=== PATIENT | female | born 2000 | race Caucasian/White ===

== ENCOUNTER → 2023-05-13 09:36 | Outpatient (BNVA) | payer BC, OTHER, SELFPAY | PROVIDERS: PCP Nurse Practitioner Family; Visit Provider Physician Assistant Surgical ==

== ENCOUNTER 2023-06-06 08:37 | Outpatient (AMB) | payer BC, OTHER, SELFPAY ==
--- NOTE | 2023-06-06 08:40 | A.OFFVIS_ITS ---
Intake VS Expanded 06/06/23 08:49 Height 5 ft 7 in Weight 238 lb 6.4 oz BMI 37.3 BP 135/63 Blood Pressure Location Rt brachial Blood Pressure Position Sitting Pulse 78 Pulse Source Pulse Oximeter Temp 97.8 F Temperature Source Temporal Artery Scan Pulse Oximetry 98 Oxygen Delivery Method Room Air Body Fat 103.6 Body Fat Percentage 43.5 Free Fat Mass 134.8 Muscle Mass 127.8 Visceral Mass 9.0 Water Mass 97.0 BMR 1,929 Intake Visit Reasons: (OV) Gastric Balloon Allergies Sulfa (Sulfonamide Antibiotics) Allergy (Severe, Verified 06/06/23 08:46) Anaphylaxis HPI HPI Comments History of Present Illness Details She wants to lose weight but she want s to avoid to have bariatric surgery PFSH Surgical History (Updated 06/06/23 @ 08:47 by Ami Kaufman CMA) History of back surgery Family History (Updated 05/13/23 @ 09:51 by Ami Kaufman CMA) Mother No problems noted. Father Acute Crohn's disease Social History (Updated 05/13/23 @ 09:50 by Ami Kaufman CMA) Alcohol intake: never Patient Tobacco Use Status: Never used Tobacco Physical Exam Vital Signs: Last Vital Signs Temp 97.8 F 06/06/23 08:49 Pulse 78 06/06/23 08:49 BP 135/63 06/06/23 08:49 Pulse Ox 98 06/06/23 08:49 Oxygen Delivery Method Room Air 06/06/23 08:49 BMI result Body Mass Index 37.3 GI Inspection: Yes normal to inspection (mixed body habitus), Yes incision (lower midline) and Yes obesity Palpation (GI): Soft to palpation Extrem Right lower extremity: normal to inspection Left lower extremity: normal to inspection Assessment & Plan Assessment & Plan (1) Obesity: Code(s): E66.9 - Obesity, unspecified Plan: 1.? Plan for endogastric balloon therapy. We discussed the process in detailed including the need for endoscopy to place the balloon as well as to remove 6 months later under sedation or general anesthesia. We discussed the need to be on a PPI and a multivitamin throughout the balloon therapy. We discussed the potential risks and complications of the balloon including premature removal, premature balloon with potential balloon migration and bowel obstructions, gastric ulcer, GI bleeding, gastric or esophageal perforation, pancreatitis. Specifically for the premature balloon deflation we discussed the instillation of methylene blue into the balloon so in case of premature deflation the patient's urine would be discolored. We also discussed the potential symptoms the patient may experience the first few days until the stomach is fully adjusted to the balloon, including nausea, vomiting, abdominal cramping, GERD, dehydration that may require IV hydration, fatigue, lack of energy, excessive fullness, or burping. I reassured her that these symptoms are temporary and subside completely within the first week. We also discussed that the expected weight loss is about 25% of her initial weight which corresponds to about 58lbs. We also discussed the possibility of inadequate weight loss. I emphasized the importance of purchasing a body composition scale and the need for weekly weight measurements and communication with me. We also discussed the need for a proper nutritional plan that will include a combination of protein shakes, protein bars and a proper food-based meal. The patient will need to be on a liquid diet during the first week until the stomach is fully adjusted to the balloon as well as the last week before endoscopic removal so the stomach empties from any residual food. We also discussed the philosophy of the program that we use the balloon as a motivating factor to work with me and change slowly her lifestyle by improving her nutritional and exercise plan. This approach will maximize the weight loss from the balloon therapy and allow her to maintain her weight after the balloon is removed. Finally we discussed the importance of long-term follow- up in our practice in order to maintain her weight loss long-term. The patient is in agreement with the plan and wants to proceed with placement. 2. The patient will undergo a blood work, EKG and a H pylori breath test. 3. I gave her directions as to which body composition scale, protein shakes and bars she needs to buy prior to balloon placement. (2) BMI 37.0-37.9, adult: Code(s): Z68.37 - Body mass index [BMI] 37.0-37.9, adult Coding Level of Care Code New Pt Level 4 (83984) Diagnoses Obesity E66.9 BMI 37.0-37.9, adult Z68.37 Time Spent (min) 45
[2023-06-06 08:49] VITALS: BP 135/63; PULSE 78; TEMP 36.6; O2SAT 98; BMI 37.3
== END 2023-06-06 10:38 | disposition home or self-care (01) ==
PROVIDERS: PCP Nurse Practitioner Family; Visit Provider Surgery
DX: E66.9 Obesity, unspecified (principal); Z68.37 Body mass index [BMI] 37.0-37.9, adult
CPT/HCPCS: 99204

== ENCOUNTER → 2023-06-06 08:37 | Outpatient (BNVA) | payer BC, OTHER, SELFPAY | PROVIDERS: PCP Nurse Practitioner Family; Visit Provider Surgery ==

== ENCOUNTER → 2024-02-06 09:44 | Outpatient (BNVA) | payer SELFPAY | PROVIDERS: PCP Nurse Practitioner Family; Visit Provider Physician Assistant | DX: Z02.79 Encounter for issue of other medical certificate (principal) ==

== ENCOUNTER → 2025-01-25 09:51 | Outpatient (BNVA) | payer SELFPAY | PROVIDERS: PCP Nurse Practitioner Family; Visit Provider Physician Assistant Medical | DX: Z02.79 Encounter for issue of other medical certificate (principal) ==